=== PATIENT | female | born 1985 | race Caucasian/White ===

== ENCOUNTER 2018-04-06 05:23 | Inpatient (IN) ==
[2018-04-06] MEDS ORDERED: Oxytocin 30 Units/500ml Premix 30 UNITS/500 ML BAG IV.SIG PRN (06:32)
[2018-04-06] MEDS ORDERED: Naloxone Inj 0.4 MG/ML Vial IV.PUSH PRN ×3 (06:33→14:54)
[2018-04-06] MEDS ORDERED: Sodium Chlor 0.9% Inj 500 ML IV.SIG PRN (06:33)
[2018-04-06] MEDS ORDERED: Sod Chloride 0.9% Inj 1,000 ML IV.CONT PRN (06:33)
[2018-04-06] MEDS ORDERED: fentaNYL Citrate Inj 100 MCG/2 ML Ampul IV.PUSH PRN ×2 (06:33)
[2018-04-06] MEDS ORDERED: Penicillin G Potassium Inj 5,000,000 UNIT in Sodium Chloride 0.9% Inj 100 ML IV.SIG ONE (06:33)
[2018-04-06] MEDS ORDERED: Oxytocin 30 Units/500ml Premix 30 UNITS/500 ML BAG IV.SIG ONE (06:33)
[2018-04-06] MEDS ORDERED: Citric Acid/Sodium Citrate Liq 30 ML UDC PO SCH (06:45)
[2018-04-06 07:21] LABS: Baso % (Auto) 0.3 % (0.0-2.0); Eos # (Auto) 0.1 th/mm3 (0.0-0.4); Eos % (Auto) 0.6 % (0.0-4.0); Hematocrit 37.1 % (35.0-46.0); Hemoglobin 12.8 gm/dL (11.6-15.3); Lymph # (Auto) 1.6 th/mm3 (1.0-4.8); Lymph % (Auto) 16.4 % (9.0-44.0); Mean Corpuscular HGB Conc 34.5 % (32.0-36.0); Mean Corpuscular Hemoglobin 32.1 pg (27.0-34.0); Mean Corpuscular Volume 93.3 fL (80.0-100.0); Mean Platelet Volume 8.6 fL (7.0-11.0); Mono # (Auto) 0.6 th/mm3 (0.0-0.9); Neut # (Auto) 7.6 th/mm3 (1.8-7.7); Neut % (Auto) 76.7 % (16.0-70.0); Platelet Count 179 th/mm3 (150-450); Red Blood Count 3.98 mil/mm3 (4.00-5.30); Red Cell Distribution Width 13.9 % (11.6-17.2)
--- NOTE | 2018-04-06 08:13 | P.HPOB ---
History of Present Illness Service: labor and delivery Primary Care Physician: Shreya Burger MD Chief Complaint: term with favorable goetz score History of Present Illness: 31 yo mwf with LMP 07/14/17 and EDC 04/13/18 at 39 weeke EGA here for arom and delivery. GBS positive. Unremarkable care with HOGA beginning at 10 weeks. No PTL, GDM or HTN issues. Hx two term . No chronic or system illness. No prior surgery. Labs normal except diltutional anemia. 20 pound weight gain. No ARENAS, blurred vision, nausa or vomiting. GFM Varinder on admission. Weeks Gestation:: 39 Para: 2 : 3 - Inpatient Certification I certify that the inpatient services were ordered in accordance with Medicare regulations governing the order. 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 [facility] Stop: 04/10/18 06:44 Fentanyl Citrate (Fentanyl Inj) 50 mcg IV.PUSH Q1H PRN PRN Reason: Pain Scale 3 - 5 Fentanyl Citrate (Fentanyl Inj) 100 mcg IV.PUSH Q1H PRN PRN Reason: PAIN SCALE 6 TO 10 Oxytocin (Pitocin 30 Units/Ns 500 Ml Premix) 30 units in 500 mls @ 2 mls/hr IV.SIG TITRATE PRN; Protocol PRN Reason: For induction of labor Lactated Ringer's (Lr 1000 Ml Inj) 1,000 mls @ 125 mls/hr IV.CONT .Q8H [facility] Last Admin: 04/06/18 07:25 Dose: 125 mls/hr Lactated Ringer's (Lr 1000 Ml Inj) 1,000 mls @ 3,000 mls/hr IV.SIG UNSCH PRN PRN Reason: compromise or epidural Sodium Chloride (Ns Inj) 1,000 mls @ 100 mls/hr IV.CONT .Q10H PRN PRN Reason: SEE LABEL COMMENTS Penicillin G Potassium 2,500, (000 unit/ Sodium Chloride) 100 mls @ 200 mls/hr IV.SIG Q4H KARLENE Sodium Chloride (Ns Inj) 500 mls @ 1,000 mls/hr IV.SIG UNSCH PRN PRN Reason: SEE LABEL COMMENTS Lidocaine HCl (Xylocaine 1% Inj) 0.1 ml I-DERMAL PRN PRN PRN Reason: For IV start Stop: 04/09/18 06:32 Lidocaine HCl (Xylocaine 1% Inj) 10 ml INFILTRATN PRN PRN PRN Reason: For episiotomy repair Stop: 04/08/18 06:32 Mineral Oil (Muri-Lube Oil) 10 ml TOPICAL PRN PRN PRN Reason: PRN perineal massage Naloxone HCl (Narcan Inj) 0.1 mg IV.PUSH Q2M PRN PRN Reason: for opiate reversal Ondansetron HCl (Zofran Inj) 4 mg IV.PUSH Q6H PRN PRN Reason: NAUSEA OR VOMITING Allergies Allergy/AdvReac Type Severity Reaction Status Date / Time No Known Allergies Allergy Verified 04/06/18 06:22 Exam Vital signs: Vital Signs 04/06/18 06:25 04/06/18 07:05 04/06/18 07:29 Temperature Pulse Rate 99 H 75 75 Respiratory Rate 18 Blood Pressure 131/87 121/74 04/06/18 07:30 Temperature 98.6 F Pulse Rate Respiratory Rate Blood Pressure - Constitutional no acute distress - Routine HEENT Exam Head: Present: normocephalic, atraumatic Eye: Present: PERRL ENT: Present: mucous membranes moist - Routine Neck Exam Present: full ROM - Routine Respiratory Exam Present: CTA bilaterally - Routine Cardiovascular Exam Present: RRR - Routine Abdominal Exam Present: soft, normoactive bowel sounds - Routine Extremities Exam Present: pulses intact - Routine Skin Exam Present: intact - Routine Neurological Exam Present: alert - Additional findings Additional findings: deviated markedly to patients left efw 7.5 pounds pelvis proven Results - Labs CBC & Chem 7: 04/06/18 06:47 Labs: Laboratory Results - last 24 hr 04/06/18 04/06/18 06:47 06:47 WBC 10.0 RBC 3.98 L Hgb 12.8 Hct 37.1 MCV 93.3 MCH 32.1 MCHC 34.5 RDW 13.9 Plt Count 179 MPV 8.6 Neut % (Auto) 76.7 H Lymph % (Auto) 16.4 [place] % (Auto) 6.0 Eos % (Auto) 0.6 Baso % (Auto) 0.3 Neut # (Auto) 7.6 Lymph # (Auto) 1.6 [place] # (Auto) 0.6 Eos # (Auto) 0.1 Baso # (Auto) 0.0 WBC Differential . Differential Comment Auto diff final Blood Type A Positive Blood Type Recheck Required Group B Strep: Positive Caprini VTE Risk Assessment Caprini VTE Risk Assessment: No/Low Risk (score <= 1) Caprini Risk Assessment Model: Point Value = 1 Point Value = 2 Point Value = 3 Point Value = 5 Age 41-60 Minor surgery BMI > 25 kg/m2 Swollen legs Varicose veins or History of unexplained or recurrent spontaneous Oral contraceptives or hormone replacement Sepsis (< 1 month) Serious lung disease, including pneumonia (< 1 month) Abnormal pulmonary function Acute myocardial infarction Congestive heart failure (< 1 month) History of inflammatory bowel disease Medical patient at bed rest Age 61-74 Arthroscopic surgery Major open surgery (> 45 min) Laparoscopic surgery (> 45 min) Malignancy Confined to bed (> 72 hours) Immobilizing plaster cast Central venous access Age >= 75 History of VTE Family history of VTE Factor V Leiden Prothrombin [id number] Lupus anticoagulant Anticardiolipin antibodies Elevated serum homocysteine Heparin-induced thrombocytopenia Other congenital or acquired thrombophilia Stroke (< 1 month) Elective arthroplasty Hip, pelvis, or leg fracture Acute spinal cord injury (< 1 month) Prophylaxis Regimen: Total Risk Factor Score Risk Level Prophylaxis Regimen 0-1 Low Early ambulation 2 Moderate Order ONE of the following: *Sequential Compression Device (SCD) *Heparin 5000 units SQ BID 3-4 Higher Order ONE of the following medications: *Heparin 5000 units SQ TID *Enoxaparin/Lovenox 40 mg SQ daily (WT < 150 kg, CrCl > 30 mL/min) *Enoxaparin/Lovenox 30 mg SQ daily (WT < 150 kg, CrCl > 10-29 mL/min) *Enoxaparin/Lovenox 30 mg SQ BID (WT < 150 kg, CrCl > 30 mL/min) AND/OR *Sequential Compression Device (SCD) 5 or more Highest Order ONE of the following medications: *Heparin 5000 units SQ TID (Preferred with Epidurals) *Enoxaparin/Lovenox 40 mg SQ daily (WT < 150 kg, CrCl > 30 mL/min) *Enoxaparin/Lovenox 30 mg SQ daily (WT < 150 kg, CrCl > 10-29 mL/min) *Enoxaparin/Lovenox 30 mg SQ BID (WT < 150 kg, CrCl > 30 mL/min) AND *Sequential Compression Device (SCD) Assessment and Plan - Diagnosis (1) Term Code(s): Z34.80 - Encounter for supervision of other normal , unspecified trimester Status: Acute - Plan anticipate
[2018-04-06 08:37] LABS: Bacteria,Urine Moderate /hpf; Bilirubin,Urine Negative (Negative); Clarity,Urine Turbid (Clear); Color,Urine Yellow (Yellw/Straw); Glucose,Urine (UA) Negative (Negative); Leukocyte Esterase,Urine Large (Negative); Mucus,Urine Few /lpf (Occasional); Nitrite,Urine Negative (Negative); Specific Gravity,Urine 1.016 (1.002-1.035); Squamous Epithelial Cell,Urine 13 /hpf (0-5)
[2018-04-06 08:44] LABS: Amphetamine Urine With Conf Neg (Neg); Benzodiazepine Urine With Conf Neg (Neg)
[2018-04-06] MEDS ORDERED: fentaNYL 2MCG-Bupiv 0.125% Epi 150 ML EPIDURAL ONE (09:45)
[2018-04-06] MEDS ORDERED: Lidocaaine 1.5%/Epinephrine 1:200,000 PF Inj 5 ML Amp ONE (09:59)
[2018-04-06] MEDS ORDERED: Lidocaine PF 1% Inj 5 ML Vial ONE (09:59)
--- NOTE | 2018-04-06 10:30 | P.OBLABOR ---
Subjective Interval history: comfortable with epidural leaking post arom clear gfm Objective Vital Signs: Vital Signs - 8 hr 04/06/18 06:25 04/06/18 07:05 04/06/18 07:29 Temperature Pulse Rate 99 H 75 75 Respiratory Rate 18 Blood Pressure 131/87 121/74 04/06/18 07:30 04/06/18 07:55 04/06/18 08:43 Temperature 98.6 F Pulse Rate 76 73 Respiratory Rate 16 Blood Pressure 109/64 04/06/18 09:15 04/06/18 09:17 04/06/18 09:55 Temperature Pulse Rate 76 71 Respiratory Rate Blood Pressure 111/67 04/06/18 10:10 04/06/18 10:16 04/06/18 10:20 Temperature 98.9 F Pulse Rate 76 82 79 Respiratory Rate Blood Pressure 132/76 121/65 117/79 Objective: 6 cm/90%/-1 less deviated to the left strip category one pitocin ongoing penicllin ongoing Assessment and Plan - Diagnosis (1) Term Code(s): Z34.80 - Encounter for supervision of other normal , unspecified trimester Status: Acute - Plan anticipate
[2018-04-06] MEDS: Penicillin G Potassium Inj 2,500,000 UNIT in Sodium Chlor 0.9% Inj 100 ML IV.SIG SCH ×3 (10:40→23:49)
[2018-04-06] MEDS ORDERED: fentaNYL 2MCG-Bupiv 0.125% Epi 150 ML EPIDURAL PRN (10:53)
[2018-04-06] MEDS ORDERED: fentaNYL Citrate Inj 100 MCG/2 ML Ampul EPIDURAL ONE (11:05)
[2018-04-06] MEDS ORDERED: Oxytocin 30 Units/500ml Premix 30 UNITS/500 ML BAG IV.CONT PRN (12:33)
[2018-04-06] MEDS ORDERED: Zolpidem Tartrate 5 MG Tablet PO PRN (12:33)
[2018-04-06] MEDS ORDERED: Bisacodyl 10 MG Supp RECTAL PRN (12:33)
--- NOTE | 2018-04-06 12:33 | P.OBDELI ---
Weeks Gestation: 39 Patient Started Active Labor: Yes Medical Induction of Labor: Yes Artificial Rupture of Membrane: Yes Anesthesia: Epidural Episiotomy: none Vaginal Delivery: Normal Presentation: Occiput anterior Nuchal Cord: None Delayed Cord Clamping (45 sec): Yes Placenta: Spontaneous delivery, Intact, 3 vessel cord, Cord pH Laceration: 1 deg Repair: Chromic running Estimated blood loss (mL): 200 Infant: Female Infant Female A Delivery Date: 04/06/18 Infant Delivery Time: 12:32 score (1 min): 8 score (5 min): 9
[2018-04-06] MEDS: Witch Hazel 50%/Glyderin 12.5% 40 Pad Jar RECTAL PRN ×2 (14:23→15:51)
[2018-04-06] MEDS: Benzocaine 20% Top Spray 60 ML Can TOPICAL PRN ×2 (14:23→15:50)
[2018-04-06] MEDS ORDERED: Acetaminophen 325 MG Tablet PO PRN (14:54)
[2018-04-06] MEDS ORDERED: Diphtheria/Tetanus/Pertussis Vaccine Inj 0.5 ML Syringe IM ONE (16:00)
[2018-04-06] MEDS ORDERED: Measles/Mumps/Rubella Vaccine Inj 0.5 ML Vial SQ ONE (16:00)
[2018-04-06] MEDS: Acetaminophen 325 MG Tablet PO PRN (20:00)
[2018-04-06] MEDS: Senna/Docusate Sodium 8.6/50 MG Tablet PO SCH (23:48)
[2018-04-07] MEDS: Acetaminophen 325 MG Tablet PO PRN ×2 (00:34→04:19)
--- NOTE | 2018-04-07 08:44 | P.PNOB ---
Subjective Post day: 1 Interval history: PPD#1; s/p , GBS+, stable,doing well Objective Vital Signs/I&O: Vital Signs 04/06/18 08:43 04/06/18 09:15 04/06/18 09:17 Temperature Pulse Rate 73 76 Respiratory Rate 16 Blood Pressure 109/64 111/67 04/06/18 09:25 04/06/18 09:55 04/06/18 10:10 Temperature 98.9 F Pulse Rate 75 71 76 Respiratory Rate 18 Blood Pressure 125/63 132/76 04/06/18 10:16 04/06/18 10:20 04/06/18 10:35 Temperature Pulse Rate 82 79 81 Respiratory Rate Blood Pressure 121/65 117/79 109/74 04/06/18 10:50 04/06/18 10:55 04/06/18 11:25 Temperature Pulse Rate 83 78 83 Respiratory Rate Blood Pressure 113/65 117/75 120/66 04/06/18 11:35 04/06/18 11:40 04/06/18 11:45 Temperature Pulse Rate 75 72 83 Respiratory Rate Blood Pressure 04/06/18 11:46 04/06/18 12:10 04/06/18 12:20 Temperature 98.5 F Pulse Rate 92 H 115 H Respiratory Rate Blood Pressure 122/60 04/06/18 12:30 04/06/18 12:38 04/06/18 12:42 Temperature 98.4 F Pulse Rate 70 Respiratory Rate 20 Blood Pressure 112/62 04/06/18 12:45 04/06/18 13:09 04/06/18 13:15 Temperature Pulse Rate 71 69 70 Respiratory Rate 17 Blood Pressure 113/74 108/66 112/69 04/06/18 13:31 04/06/18 14:05 04/06/18 17:55 Temperature 98.6 F 98.7 F Pulse Rate 67 73 77 Respiratory Rate 14 16 Blood Pressure 102/56 L 113/65 127/72 04/06/18 20:00 04/07/18 08:00 Temperature 98.1 F 97.9 F Pulse Rate 66 74 Respiratory Rate 16 20 Blood Pressure 107/74 136/80 Intake & Output 04/06/18 04/07/18 04/07/18 18:59 06:59 18:59 Intake Total 200 / 200 Balance 200 / 200 Intake: IV 200 / 200 Pfizerpen-G Inj 2,500,000 UNIT 100 / 100 In NS Inj 100 ML @ 200 mls/hr IV.SIG Q4H [facility] Rx#:[id number] Pfizerpen-G Inj 5,000,000 UNIT 100 / 100 In NS Inj 100 ML @ 200 mls/hr IV.SIG ONCE ONE Rx#:[id number] Result Diagrams: 04/06/18 06:47 Objective Remarks: GENERAL: Well-nourished, well-developed patient. CARDIOVASCULAR: Regular rate and rhythm without murmurs, gallops, or rubs. RESPIRATORY: Breath sounds equal bilaterally. No accessory muscle use. ABDOMEN/GI: Abdomen soft, non-tender. Fundus: Firm, non-tender at umbilicus. GENITOURINARY: Light to moderate bleeding. EXTREMITIES: No cyanosis or edema, non-tender, without signs of DVT. 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 [facility] Stop: 04/10/18 06:44 Ephedrine Sulfate (Ephedrine/Ns Syringe) 10 mg IV.PUSH UNSCH PRN PRN Reason: SEE LABEL COMMENTS Stop: 04/07/18 10:53 Last Admin: 04/06/18 14:22 Dose: 10 mg Fentanyl Citrate (Fentanyl Inj) 50 mcg IV.PUSH Q1H PRN PRN Reason: Pain Scale 3 - 5 Fentanyl Citrate (Fentanyl Inj) 100 mcg IV.PUSH Q1H PRN PRN Reason: PAIN SCALE 6 TO 10 Lactated Ringer's (Lr 1000 Ml Inj) 1,000 mls @ 125 mls/hr IV.CONT .Q8H [facility] Last Admin: 04/06/18 23:48 Dose: Not Given Lactated Ringer's (Lr 1000 Ml Inj) 1,000 mls @ 3,000 mls/hr IV.SIG UNSCH PRN PRN Reason: compromise or epidural Sodium Chloride (Ns Inj) 1,000 mls @ 100 mls/hr IV.CONT .Q10H PRN PRN Reason: SEE LABEL COMMENTS Penicillin G Potassium 2,500, (000 unit/ Sodium Chloride) 100 mls @ 200 mls/hr IV.SIG Q4H KARLENE Last Admin: 04/06/18 23:49 Dose: Not Given Sodium Chloride (Ns Inj) 500 mls @ 1,000 mls/hr IV.SIG UNSCH PRN PRN Reason: SEE LABEL COMMENTS Fentanyl/Bupivacaine/Sodium Chlor (Fentanyl 2 Mcg-Bupiv 0.125% Epi) 150 mls @ 12 mls/hr EPIDURAL PRN PRN PRN Reason: for Labor Pain Oxytocin (Pitocin 30 Units/Ns 500 Ml Premix) 30 units in 500 mls @ 100 mls/hr IV.CONT UNSCH PRN PRN Reason: Heavy bleeding Ibuprofen (Motrin) 800 mg PO Q8H PRN PRN Reason: For Cramping Last Admin: 04/07/18 00:35 Dose: 800 mg Ibuprofen (Motrin) 800 mg PO Q8H PRN PRN Reason: For Cramping Lactulose (Lactulose Liq) 30 ml PO DAILY PRN PRN Reason: SEVERE CONSITIPATION Lidocaine HCl (Xylocaine 1% Inj) 0.1 ml I-DERMAL PRN PRN PRN Reason: For IV start Stop: 04/09/18 06:32 Lidocaine HCl (Xylocaine 1% Inj) 10 ml INFILTRATN PRN PRN PRN Reason: For episiotomy repair Stop: 04/08/18 06:32 Mineral Oil (Muri-Lube Oil) 10 ml TOPICAL PRN PRN PRN Reason: PRN perineal massage Miscellaneous Information (Misc Information) 1 each OTHER UNSCH PRN PRN Reason: SEE LABEL COMMENTS Stop: 04/07/18 10:53 Naloxone HCl (Narcan Inj) 0.1 mg IV.PUSH Q2M PRN PRN Reason: for opiate reversal Naloxone HCl (Narcan Inj) 0.1 mg IV.PUSH Q2M PRN PRN Reason: for opiate reversal Ondansetron HCl (Zofran Inj) 4 mg IV.PUSH Q6H PRN PRN Reason: NAUSEA OR VOMITING Ondansetron HCl (Zofran Odt) 4 mg PO Q6H PRN PRN Reason: NAUSEA OR VOMITING Senna/Docusate Sodium (Mirna-Colace) 1 tab PO BID [facility] Last Admin: 04/06/18 23:48 Dose: Not Given Sennosides (Senokot) 17.2 mg PO Q12H PRN PRN Reason: Moderate Constipation Sodium Chloride (Ns Flush) 2 ml IV.FLUSH BID [facility] Last Admin: 04/07/18 00:35 Dose: 2 ml Sodium Chloride (Ns Flush) 2 ml IV.FLUSH PRN PRN PRN Reason: FLUSH AFTER USING IV ACCESS Witch Christina/Glycerin (Tucks Pads) 1 applicatio RECTAL QID PRN PRN Reason: HEMORRHOIDS Last Admin: 04/06/18 15:51 Dose: 1 applicatio Zolpidem Tartrate (Ambien) 5 mg PO HS PRN PRN Reason: SLEEP Assessment and Plan - Diagnosis (1) Term Code(s): Z34.80 - Encounter for supervision of other normal , unspecified trimester Status: Acute - Plan PPD#1, Doing well, plan discharge after 48 hour period due to GBS+ Discharge Planning: PPD#2; routine
[2018-04-07 20:57] VITALS: RESP 18
[2018-04-08] MEDS: Senna/Docusate Sodium 8.6/50 MG Tablet PO SCH (06:51)
[2018-04-08 09:10] VITALS: BP 121/76; PULSE 74; TEMP 98.3
== END 2018-04-08 13:16 | disposition home or self-care (01) ==
LOC: H2E 05:23 → H1EA 15:42
PROVIDERS: ADMIT Obstetrics & Gynecology; ATTEND Obstetrics & Gynecology